=== PATIENT | female | born 1980 | race Caucasian/White ===

== ENCOUNTER 2017-03-17 09:06 | Outpatient (CLI) ==
--- NOTE | 2017-03-17 10:53 | US ---
EXAM: Ultrasound thyroid. HISTORY: Abnormal thyroid function tests. COMPARISON: None available. TECHNIQUE: Salas-scale and color Doppler images. FINDINGS: The right lobe of the thyroid measures 2.7 x 1.1 x 1.1 cm. There is heterogeneous echogenicity witho ut discrete nodule. The thyroid isthmus measures 0.3 cm. The left lobe of the thyroid measures 2.8 x 0.9 x 0.8 cm. There is heterogeneous echogenicity witho ut discrete nodule. IMPRESSION: Heterogeneous thyroid gland without discrete nodule.
== END 2017-03-17 09:07 | disposition home or self-care (01) ==
LOC: RAD 09:06
PROVIDERS: ATTEND Family Medicine
DX: R79.9 Abnormal finding of blood chemistry, unspecified (principal)